=== PATIENT | female | born 1940 | race Caucasian/White ===

== ENCOUNTER 2018-07-30 13:41 | Observation (INO) ==
--- NOTE | 2018-07-30 14:16 | ED ---
HPI General Chief complaint: Dizziness Stated complaint: rt side jaw/neck/back pain x friday Time Seen by Provider: 07/30/18 14:16 History of Present Illness HPI narrative: This patient has had 2 spells of chest pain and pressure in the last 4 days. Also included her right jaw and side of neck. Currently pain- free. No injury or fever. She has elevated cholesterol but denies any prior diagnosed cardiac problems. She had a negative stress test 2 years ago per her report. Severity was moderate. No alleviating factors. No exacerbating factors. Duration was 1 hour Related Data Home Medications Medication Instructions Recorded Confirmed Cholesterol Med 07/30/18 Hormone Med 07/30/18 levothyroxine [Synthroid] 112 mcg PO DAILY 07/30/18 Previous Rx's Medication Instructions Recorded aspirin 324 mg PO DAILY tab 07/31/18 nitroglycerin [Nitrostat] 0.4 mg SUBLINGUAL Q5M PRN #30 tab 07/31/18 Allergies Allergy/AdvReac Type Severity Reaction Status Date / Time No Known Allergies Allergy Verified 07/30/18 13:54 Review of Systems ROS: all other systems reviewed are negative [facility] Family History Family History Other No pertinent family history Social History Social History Substance History: No History of Abuse Second Hand Smoke Exposure: No Smoking Status: Never smoker How Often Do You Have a Drink Containing Alcohol: Never Exam Narrative Exam Narrative: GENERAL: Well-nourished, well-developed patient in no apparent distress. SKIN: Focused skin assessment reveals no rash and nodules. Skin is Warm and dry. HEAD: Atraumatic. Normocephalic. EYES: Pupils equal and round. No scleral icterus. No injection or drainage. ENT: No nasal bleeding or discharge. Mucous membranes pink and moist. NECK: Trachea midline. No JVD. CARDIOVASCULAR: Regular rate and rhythm. No murmur appreciated. RESPIRATORY: No accessory muscle use. Clear to auscultation. Breath sounds equal bilaterally. GASTROINTESTINAL: Abdomen soft, non-tender, nondistended. Hepatic and splenic margins not palpable. MUSCULOSKELETAL: No obvious deformities. No clubbing. No cyanosis. No edema. NEUROLOGICAL: Awake and alert. No obvious cranial nerve deficits. Motor grossly within normal limits. Normal speech. PSYCHIATRIC: Appropriate mood and affect; insight and judgment normal. Course Initial Documented Vital Signs Temperature 97.7 F 07/30/18 13:50 Pulse Rate 65 07/30/18 13:50 Respiratory Rate 16 07/30/18 13:50 Blood Pressure 140/63 07/30/18 13:50 Pulse Oximetry 96 07/30/18 13:50 Last Documented Vital Signs Temperature 98.0 F 07/31/18 12:00 Pulse Rate 61 07/31/18 12:00 Respiratory Rate 14 07/31/18 12:00 Blood Pressure 130/65 07/31/18 12:00 Pulse Oximetry 96 07/31/18 12:00 Sign Out Sign Out Data: Patient Sign Out occurred on 07/30/18 at 15:06. Patient's care was discussed, and care was transferred from Deandre Taylor MD to Nakul Millan MD. Sign Out Comment: Workup initiated and checked out to the evening physician. Tentatively planning for chest pain center observation if workup is negative. Last updated by Deandre Taylor MD at 07/30/18 14:55 Post-Handoff Eval: Patient will be admitted for chest pain rule out CA. First troponin is negative. Patient is currently pain-free. Medical Decision Making MDM Narrative Medical decision making narrative: IV placed and labs sent. I gave her an aspirin. Her EKG is normal Medical Screen Exam Complete: Yes Emergency Medical Condition: Yes Differential Diagnosis Differential Diagnosis: Differential diagnosis includes CA, angina, pericarditis , pleurisy, GERD, anxiety. Medical Records Medical records reviewed: Yes I reviewed the patient's medical records. Lab Data Result diagrams: 07/30/18 14:29 07/31/18 05:45 Lab Results 07/30/18 07/30/18 07/30/18 Range/Units 14:29 14:29 18:05 CBC w Diff Auto diff final WBC 7.1 (4.0-11.0) th/mm3 RBC 4.35 (4.00-5.30) mil/mm3 Hgb 12.8 (11.6-15.3) gm/dL Hct 38.2 (35.0-46.0) % MCV 87.7 (80.0-100.0) fL MCH 29.3 (27.0-34.0) pg MCHC 33.4 (32.0-36.0) % RDW 12.7 (11.6-17.2) % Plt Count 234 (150-450) th/mm3 MPV 8.4 (7.0-11.0) fL Neut % (Auto) 52.7 (16.0-70.0) % Lymph % (Auto) 36.0 (9.0-44.0) % [place] % (Auto) 7.3 (0.0-8.0) % Eos % (Auto) 3.3 (0.0-4.0) % Baso % (Auto) 0.7 (0.0-2.0) % Neut # (Auto) 3.8 (1.8-7.7) th/mm3 Lymph # (Auto) 2.6 (1.0-4.8) th/mm3 [place] # (Auto) 0.5 (0.0-0.9) th/mm3 Eos # (Auto) 0.2 (0.0-0.4) th/mm3 Baso # (Auto) 0.0 (0.0-0.2) th/mm3 WBC Differential . Differential Comment . Sodium 140 (136-145) meq/L Potassium 3.8 (3.5-5.1) meq/L Chloride 107 (98-107) meq/L Carbon Dioxide 24.0 (21.0-32.0) meq/L Anion Gap 9 (5-15) meq/L BUN 16 (7-18) mg/dL Creatinine 1.10 H (0.50-1.00) mg/dL Estimated GFR 48 L (>89) mL/min Random Glucose 107 H (74-106) mg/dL Calcium 8.5 (8.5-10.1) mg/dL Magnesium (1.5-2.5) mg/dL Total Creatine Kinase 189 159 (26-192) U/L CK-MB (CK-2) 7.9 H (0.5-3.6) ng/mL Troponin I Less than 0.02 L Less than 0.02 L (0.02-0.05) ng/mL 07/30/18 07/31/18 Range/Units 21:08 05:45 CBC w Diff WBC (4.0-11.0) th/mm3 RBC (4.00-5.30) mil/mm3 Hgb (11.6-15.3) gm/dL Hct (35.0-46.0) % MCV (80.0-100.0) fL MCH (27.0-34.0) pg MCHC (32.0-36.0) % RDW (11.6-17.2) % Plt Count (150-450) th/mm3 MPV (7.0-11.0) fL Neut % (Auto) (16.0-70.0) % Lymph % (Auto) (9.0-44.0) % [place] % (Auto) (0.0-8.0) % Eos % (Auto) (0.0-4.0) % Baso % (Auto) (0.0-2.0) % Neut # (Auto) (1.8-7.7) th/mm3 Lymph # (Auto) (1.0-4.8) th/mm3 [place] # (Auto) (0.0-0.9) th/mm3 Eos # (Auto) (0.0-0.4) th/mm3 Baso # (Auto) (0.0-0.2) th/mm3 WBC Differential Differential Comment Sodium 142 (136-145) meq/L Potassium 4.0 (3.5-5.1) meq/L Chloride 108 H (98-107) meq/L Carbon Dioxide 27.1 (21.0-32.0) meq/L Anion Gap 7 (5-15) meq/L BUN 20 H (7-18) mg/dL Creatinine 0.87 (0.50-1.00) mg/dL Estimated GFR 63 L (>89) mL/min Random Glucose 80 (74-106) mg/dL Calcium 8.3 L (8.5-10.1) mg/dL Magnesium 2.1 (1.5-2.5) mg/dL Total Creatine Kinase 146 (26-192) U/L CK-MB (CK-2) (0.5-3.6) ng/mL Troponin I Less than 0.02 L (0.02-0.05) ng/mL Imaging Data Radiologist's impression: Cervical Spine X-Ray 07/30/18 00:00 CONCLUSION: Intact cervical spine. Degenerative changes as above. Chest X-Ray 07/30/18 14:13 CONCLUSION: 1. Minimal bibasilar patchiness consistent with atelectasis and/or mild infiltrates. Clinical correlation is recommended. 2. Mild cardiomegaly. Myocardial Perfusion Scan Nuc Med 07/31/18 00:00 CONCLUSION: 1. Minimal redistribution borderline significance as above. ECG Data EKG Prior to Arrival: No Attestation: I personally reviewed and interpreted this ECG as follows: Prior ECG tracings: not available for review Interpretation: She has a sinus rhythm with no ST elevation. Normal [place] interval and axis. Normal rate Discharge Plan Discharge Disposition Patient Disposition: 01 Discharge Home Discharge Condition Condition: Stable Discharge Order Discharge Orders: Discharge Order (Routine); Ordered 07/31/18 Ordered By: Richard Kimball Physicians Team ED Provider: Nakul Millan Attending Provider: Richard Kimball Status ED Status: Left Department Discharge Information Discharge Date/Time: 07/30/18 16:20
[2018-07-30 14:49] LABS: Baso % (Auto) 0.7 % (0.0-2.0); Eos # (Auto) 0.2 th/mm3 (0.0-0.4); Eos % (Auto) 3.3 % (0.0-4.0); Hematocrit 38.2 % (35.0-46.0); Hemoglobin 12.8 gm/dL (11.6-15.3); Lymph # (Auto) 2.6 th/mm3 (1.0-4.8); Mean Corpuscular HGB Conc 33.4 % (32.0-36.0); Mean Corpuscular Hemoglobin 29.3 pg (27.0-34.0); Mean Corpuscular Volume 87.7 fL (80.0-100.0); Mean Platelet Volume 8.4 fL (7.0-11.0); Mono # (Auto) 0.5 th/mm3 (0.0-0.9); Mono % (Auto) 7.3 % (0.0-8.0); Neut # (Auto) 3.8 th/mm3 (1.8-7.7); Neut % (Auto) 52.7 % (16.0-70.0); Platelet Count 234 th/mm3 (150-450); Red Blood Count 4.35 mil/mm3 (4.00-5.30); Red Cell Distribution Width 12.7 % (11.6-17.2); White Blood Count 7.1 th/mm3 (4.0-11.0)
[2018-07-30 15:03] LABS: Chloride 107 meq/L (98-107); Potassium 3.8 meq/L (3.5-5.1); Sodium 140 meq/L (136-145)
[2018-07-30 15:06] LABS: Calcium 8.5 mg/dL (8.5-10.1)
[2018-07-30 15:07] LABS: Anion Gap 9 meq/L (5-15); Blood Urea Nitrogen 16 mg/dL (7-18); Glucose,Random 107 mg/dL (74-106)
[2018-07-30 15:10] LABS: Glomerular Filtration Rate 48 mL/min (>89)
[2018-07-30 15:13] LABS: Creatine Kinase 189 U/L (26-192)
--- NOTE | 2018-07-30 15:15 | XR ---
EXAM DATE: 07/30/2018 3:06 PM EDT AGE/SEX: 77 years / Female INDICATIONS: Chest pain. CLINICAL DATA: This is the patient's initial encounter. Patient reports that signs and symptoms have been present for 1 day and indicates a pain score of 7/10. MEDICAL/SURGICAL HISTORY: None. None. COMPARISON: No prior exams available for comparison. FINDINGS: Minimal bibasilar patchiness is noted consistent with atelectasis and/or mild infiltrates. Clinical c orrelation is recommended. The heart is mildly enlarged. The pulmonary vascular pattern is normal. CONCLUSION: 1. Minimal bibasilar patchiness consistent with atelectasis and/or mild infiltrates. Clinical correl ation is recommended. 2. Mild cardiomegaly. Electronically signed by: Hector Cruz MD 07/30/2018 3:14 PM EDT
[2018-07-30 15:25] LABS: Creatine Kinase MB 7.9 ng/mL (0.5-3.6)
[2018-07-30] MEDS ORDERED: Acetaminophen 500 MG Tablet PO PRN (15:35)
[2018-07-30] MEDS ORDERED: Regadenoson Inj 0.4 MG/5 ML Syringe IV.PUSH ONE (15:38)
[2018-07-30] MEDS ORDERED: Morphine Sulfate Inj 2 MG/ML Vial IV.PUSH PRN (16:15)
[2018-07-30] MEDS: Heparin - SQ 10,000 UNITS/ML Vial SQ SCH (17:42)
--- NOTE | 2018-07-30 18:00 | P.HP ---
History of Present Illness Primary Care Physician: Aubrie Hood Chief Complaint: Jaw pain History of Present Illness: This is a 77-year-old female with a history of hyperlipidemia and hypothyroidism. She presents to the emergency room complaining of jaw pain. It first happened 5 days ago when she developed right jaw pain radiating to her neck and upper back pain. It lasted for about 10 minutes without medications. She massaged her right jaw which alleviated her discomfort. She denies dental pain, chest pain, shortness of breath, palpitations, dizziness and diaphoresis. Today while at work her symptoms recurred and was concerned for possible heart involvement and presented to the hospital. At this time she is pain- free. She had negative stress test 2 years ago. ER physician wants patient to be in chest pain center to be ruled out. Also denies fever, chills and cough Review of Systems All other systems reviewed negative except as stated in HPI [facility] - History History Provided By: Patient - Medical History Medical History: Medical History (Last Reviewed 07/30/18 @ 17:54 by Richard Kimball MD) High cholesterol History of hysterectomy Hypothyroid - Surgical History Surgical History: Surgical History (Last Reviewed 07/30/18 @ 17:54 by Richard Kimball MD) History of appendectomy - Family History Family History: Family History (Last Updated 07/30/18 @ 17:54 by Richard Kimball MD) Other No pertinent family history - Tobacco History Second Hand Smoke Exposure: No Smoking Status: Never smoker - Alcohol History How Often Do You Have a Drink Containing Alcohol: Never - Substance Use History Substance History: No History of Abuse - Immunization History Tetanus Immunization: Unsure Hx Influenza Vaccine This Season: Yes Medications and Allergies Active Medications: Active Medications Acetaminophen (Tylenol) 500 mg PO Q4H PRN PRN Reason: HEADACHE Hydrocodone Bitart/Acetaminophen ([place] 7.5/325) 1 tab PO Q4H PRN PRN Reason: PAIN SCALE 1 TO 7 Heparin Sodium (Porcine) (Heparin Inj) 5,000 units SQ Q12H [facility] Last Admin: 07/30/18 17:42 Dose: 5,000 units Morphine Sulfate (Morphine Inj) 2 mg IV.PUSH Q4H PRN PRN Reason: PAIN 8-10 Nitroglycerin (Nitrostat Sl) 0.4 mg SL Q5M PRN PRN Reason: CHEST PAIN Ondansetron HCl (Zofran Inj) 4 mg IV.PUSH Q6H PRN PRN Reason: NAUSEA Sodium Chloride (Ns Flush) 2 ml IV.FLUSH BID MYRTLE Sodium Chloride (Ns Flush) 2 ml IV.FLUSH PRN PRN PRN Reason: FLUSH AFTER USING IV ACCESS Allergies Allergy/AdvReac Type Severity Reaction Status Date / Time No Known Allergies Allergy Verified 07/30/18 13:54 Home Medications Medication Instructions Recorded Confirmed Type Cholesterol Med 07/30/18 History Hormone Med 07/30/18 History levothyroxine [Synthroid] 112 mcg PO DAILY 07/30/18 History Exam Vital signs: Vital Signs 07/30/18 13:50 07/30/18 14:13 07/30/18 16:34 Temperature 97.7 F Pulse Rate 65 60 54 L Respiratory Rate 16 16 Blood Pressure 140/63 140/62 Pulse Oximetry 96 96 07/30/18 17:03 07/30/18 17:07 Temperature 97.5 F L Pulse Rate 51 L Respiratory Rate 51 H Blood Pressure 129/61 Pulse Oximetry 98 95 Intake & Output 07/29/18 07/30/18 07/30/18 18:59 06:59 18:59 Weight 65 kg Other: Weight On Admission 65 kg Narrative: GENERAL: Well-developed, well-nourished in no distress SKIN: Warm and dry. HEAD: Atraumatic. Normocephalic. EYES: Pupils equal and round. No scleral icterus. No injection or drainage. ENT: No nasal bleeding or discharge. Mucous membranes pink and moist. No dental tenderness NECK: Trachea midline. No JVD. CARDIOVASCULAR: Regular rate and rhythm. RESPIRATORY: No accessory muscle use. Clear to auscultation. Breath sounds equal bilaterally. GASTROINTESTINAL: Abdomen soft, non-tender, nondistended. MUSCULOSKELETAL: Extremities without clubbing, cyanosis, or edema. No obvious deformities. No back tenderness NEUROLOGICAL: Awake and alert. No obvious cranial nerve deficits. Motor grossly within normal limits. Five out of 5 muscle strength in the arms and legs. Normal speech. PSYCHIATRIC: Appropriate mood and affect; insight and judgment normal. Results - Labs CBC & Chem 7: 07/30/18 14:29 07/30/18 14:29 Labs: Laboratory Results - last 24 hr 07/30/18 07/30/18 14:29 14:29 CBC w Diff Auto diff final WBC 7.1 RBC 4.35 Hgb 12.8 Hct 38.2 MCV 87.7 MCH 29.3 MCHC 33.4 RDW 12.7 Plt Count 234 MPV 8.4 Neut % (Auto) 52.7 Lymph % (Auto) 36.0 [place] % (Auto) 7.3 Eos % (Auto) 3.3 Baso % (Auto) 0.7 Neut # (Auto) 3.8 Lymph # (Auto) 2.6 [place] # (Auto) 0.5 Eos # (Auto) 0.2 Baso # (Auto) 0.0 WBC Differential . Differential Comment . Sodium 140 Potassium 3.8 Chloride 107 Carbon Dioxide 24.0 Anion Gap 9 BUN 16 Creatinine 1.10 H Estimated GFR 48 L Random Glucose 107 H Calcium 8.5 Total Creatine Kinase 189 CK-MB (CK-2) 7.9 H Troponin I Less than 0.02 L - Imaging Impressions Chest X-Ray 07/30/18 14:13 CONCLUSION: 1. Minimal bibasilar patchiness consistent with atelectasis and/or mild infiltrates. Clinical correlation is recommended. 2. Mild cardiomegaly. Caprini VTE Risk Assessment Caprini VTE Risk Assessment: Moderate/High Risk (score >= 2) Caprini Risk Assessment Model: Point Value = 1 Point Value = 2 Point Value = 3 Point Value = 5 Age 41-60 Minor surgery BMI > 25 kg/m2 Swollen legs Varicose veins or History of unexplained or recurrent spontaneous Oral contraceptives or hormone replacement Sepsis (< 1 month) Serious lung disease, including pneumonia (< 1 month) Abnormal pulmonary function Acute myocardial infarction Congestive heart failure (< 1 month) History of inflammatory bowel disease Medical patient at bed rest Age 61-74 Arthroscopic surgery Major open surgery (> 45 min) Laparoscopic surgery (> 45 min) Malignancy Confined to bed (> 72 hours) Immobilizing plaster cast Central venous access Age >= 75 History of VTE Family history of VTE Factor V Leiden Prothrombin [id number] Lupus anticoagulant Anticardiolipin antibodies Elevated serum homocysteine Heparin-induced thrombocytopenia Other congenital or acquired thrombophilia Stroke (< 1 month) Elective arthroplasty Hip, pelvis, or leg fracture Acute spinal cord injury (< 1 month) Prophylaxis Regimen: Total Risk Factor Score Risk Level Prophylaxis Regimen 0-1 Low Early ambulation 2 Moderate Order ONE of the following: *Sequential Compression Device (SCD) *Heparin 5000 units SQ BID 3-4 Higher Order ONE of the following medications: *Heparin 5000 units SQ TID *Enoxaparin/Lovenox 40 mg SQ daily (WT < 150 kg, CrCl > 30 mL/min) *Enoxaparin/Lovenox 30 mg SQ daily (WT < 150 kg, CrCl > 10-29 mL/min) *Enoxaparin/Lovenox 30 mg SQ BID (WT < 150 kg, CrCl > 30 mL/min) AND/OR *Sequential Compression Device (SCD) 5 or more Highest Order ONE of the following medications: *Heparin 5000 units SQ TID (Preferred with Epidurals) *Enoxaparin/Lovenox 40 mg SQ daily (WT < 150 kg, CrCl > 30 mL/min) *Enoxaparin/Lovenox 30 mg SQ daily (WT < 150 kg, CrCl > 10-29 mL/min) *Enoxaparin/Lovenox 30 mg SQ BID (WT < 150 kg, CrCl > 30 mL/min) AND *Sequential Compression Device (SCD) Assessment and Plan - Plan This is a 77-year-old female with a history of hyperlipidemia and hypothyroidism. She presents to the emergency room complaining of jaw pain radiating to her neck. She also complained of upper back pain. Symptoms worrisome for anginal equivalent. She does have risk factors for CAD. EKG reviewed by me with sinus rhythm with no acute ST-T changes. Chest x-ray image interpreted by me with no acute cardiopulmonary disease. Trend cardiac enzymes. Monitor patient on telemetry. Patient received aspirin. Sublingual nitroglycerin. Will obtain Lexiscan tomorrow if she rules out for OR. We will consult her regulatory technician if abnormal. DVT prophylaxis with SCD and subcu heparin Discharge Planning: pt
[2018-07-30 19:14] LABS: Creatine Kinase 159 U/L (26-192)
[2018-07-30 22:01] LABS: Creatine Kinase 146 U/L (26-192)
--- NOTE | 2018-07-30 23:08 | XR ---
EXAM DATE: 07/30/2018 10:58 PM EDT AGE/SEX: 77 years / Female INDICATIONS: Right side jaw and neck pain. No known injury. Best images possible due to patient cond ition and inability to move jaw. CLINICAL DATA: This is the patient's initial encounter. Patient reports that signs and symptoms have been present for 1 day and indicates a pain score of 7/10. MEDICAL/SURGICAL HISTORY: None. None. COMPARISON: No prior exams available for comparison. FINDINGS: Cervical spine alignment is normal. Vertebral bodies have normal height. No cortical break or trabecu lar disruption demonstrated. 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 Similar but milder findings are seen at C3/C4. There is mild bilateral foraminal stenosis at th nader levels, mostly C5/C6. Prevertebral soft tissues are within normal limits. CONCLUSION: Intact cervical spine. Degenerative changes as above. Electronically signed by: Juan Cerda MD 07/30/2018 11:06 PM EDT
[2018-07-31] MEDS: Heparin - SQ 10,000 UNITS/ML Vial SQ SCH (05:41)
[2018-07-31 06:22] LABS: Calcium 8.3 mg/dL (8.5-10.1)
[2018-07-31 06:23] LABS: Carbon Dioxide 27.1 meq/L (21.0-32.0); Magnesium 2.1 mg/dL (1.5-2.5)
[2018-07-31] MEDS ORDERED: Regadenoson Inj 0.4 MG/5 ML Syringe IV.PUSH ONE (09:55)
--- NOTE | 2018-07-31 11:16 | NM ---
EXAM DATE: 07/31/2018 11:09 AM EDT AGE/SEX: 77 years / Female INDICATIONS:Angina. . Jaw tightness. CLINICAL DATA: This is the patient's initial encounter. Patient reports that signs and symptoms have been present for 2 days and indicates a pain score of 3/10. MEDICAL/SURGICAL HISTORY: Hypercholesterolemia. Hypertension. Hysterectomy. COMPARISON: . DOSE: 8.7 mCi Tc 99m Myoview at rest 27.2 mCi [id number] at stress 0.4 mg Lexiscan STRESS SYMPTOMS: Chest tightness, nausea, dizziness, and heart palpitations. EJECTION FRACTION: 64 % TECHNIQUE: The patient underwent pharmacologic stress with infusion of prescribed dose. Continuous ECG tracing was monitored during stress. Gated SPECT imaging was performed after stress and conventi onal SPECT imaging was performed at rest. The examination was performed on a SPECT/CT scanner, both attenuation and non-corrected datasets were reviewed. FINDINGS: Minimal redistribution inferior septal region on the small segment towards the base. Remainder of the myocardium is well preserved Normal wall motion. RISK CATEGORY: Low (<1% Annual Motality Rate) CONCLUSION: 1. Minimal redistribution borderline significance as above. Electronically signed by: Cornelio Cruz MD 07/31/2018 11:14 AM EDT
--- NOTE | 2018-07-31 11:59 | P.PN ---
Subjective Interval history: Follow-up jaw pain. Patient complaining of fleeting right jaw pain yesterday afternoon since then she has been asymptomatic Physical Exam Vital signs: Vital Signs 07/30/18 13:50 07/30/18 14:13 07/30/18 16:34 Temperature 97.7 F Pulse Rate 65 60 54 L Respiratory Rate 16 16 Blood Pressure 140/63 140/62 Pulse Oximetry 96 96 07/30/18 17:03 07/30/18 17:07 07/30/18 20:00 Temperature 97.5 F L 96.4 F L Pulse Rate 51 L 58 L Respiratory Rate 51 H 18 Blood Pressure 129/61 120/60 Pulse Oximetry 98 95 93 L 07/31/18 00:00 07/31/18 04:00 07/31/18 08:00 Temperature 97.1 F L 97.0 F L 98.2 F Pulse Rate 64 60 54 L Respiratory Rate 18 18 12 Blood Pressure 120/70 118/67 148/66 H Pulse Oximetry 93 L 93 L 97 Intake & Output 07/30/18 07/31/18 07/31/18 18:59 06:59 18:59 Weight 65 kg 65.3 kg Other: # Voids 2 Weight On Admission 65 kg Narrative: GENERAL: Well-developed, well-nourished in no distress SKIN: Warm and dry. HEAD: Atraumatic. Normocephalic. EYES: Pupils equal and round. No scleral icterus. No injection or drainage. ENT: No nasal bleeding or discharge. Mucous membranes pink and moist. NECK: Trachea midline. No JVD. CARDIOVASCULAR: Regular rate and rhythm. RESPIRATORY: No accessory muscle use. Clear to auscultation. Breath sounds equal bilaterally. GASTROINTESTINAL: Abdomen soft, non-tender, nondistended. MUSCULOSKELETAL: Extremities without clubbing, cyanosis, or edema. No obvious deformities. NEUROLOGICAL: Awake and alert. No obvious cranial nerve deficits. Motor grossly within normal limits. Five out of 5 muscle strength in the arms and legs. Normal speech. PSYCHIATRIC: Appropriate mood and affect; insight and judgment normal. Results - Labs CBC & Chem 7: 07/30/18 14:29 07/31/18 05:45 Laboratory Results - last 24 hr 07/30/18 07/30/18 07/30/18 14:29 14:29 18:05 CBC w Diff Auto diff final WBC 7.1 RBC 4.35 Hgb 12.8 Hct 38.2 MCV 87.7 MCH 29.3 MCHC 33.4 RDW 12.7 Plt Count 234 MPV 8.4 Neut % (Auto) 52.7 Lymph % (Auto) 36.0 [place] % (Auto) 7.3 Eos % (Auto) 3.3 Baso % (Auto) 0.7 Neut # (Auto) 3.8 Lymph # (Auto) 2.6 [place] # (Auto) 0.5 Eos # (Auto) 0.2 Baso # (Auto) 0.0 WBC Differential . Differential Comment . Sodium 140 Potassium 3.8 Chloride 107 Carbon Dioxide 24.0 Anion Gap 9 BUN 16 Creatinine 1.10 H Estimated GFR 48 L Random Glucose 107 H Calcium 8.5 Magnesium Total Creatine Kinase 189 159 CK-MB (CK-2) 7.9 H Troponin I Less than 0.02 L Less than 0.02 L 07/30/18 07/31/18 21:08 05:45 CBC w Diff WBC RBC Hgb Hct MCV MCH MCHC RDW Plt Count MPV Neut % (Auto) Lymph % (Auto) [place] % (Auto) Eos % (Auto) Baso % (Auto) Neut # (Auto) Lymph # (Auto) [place] # (Auto) Eos # (Auto) Baso # (Auto) WBC Differential Differential Comment Sodium 142 Potassium 4.0 Chloride 108 H Carbon Dioxide 27.1 Anion Gap 7 BUN 20 H Creatinine 0.87 Estimated GFR 63 L Random Glucose 80 Calcium 8.3 L Magnesium 2.1 Total Creatine Kinase 146 CK-MB (CK-2) Troponin I Less than 0.02 L - Imaging Impressions Cervical Spine X-Ray 07/30/18 00:00 CONCLUSION: Intact cervical spine. Degenerative changes as above. Chest X-Ray 07/30/18 14:13 CONCLUSION: 1. Minimal bibasilar patchiness consistent with atelectasis and/or mild infiltrates. Clinical correlation is recommended. 2. Mild cardiomegaly. Myocardial Perfusion Scan Nuc Med 07/31/18 00:00 CONCLUSION: 1. Minimal redistribution borderline significance as above. - Procedures none Assessment and Plan - Plan This is a 77-year-old female with a history of hyperlipidemia and hypothyroidism. She presents to the emergency room with symptoms worrisome for anginal equivalent. She does have risk factors for CAD. Jaw pain. Patient ruled out for [place]. Lexiscan showed minimal redistribution of borderline significance. Patient is currently asymptomatic. 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 Unable to start beta-britney secondary to baseline bradycardia. Nursing again requested to update medication list DVT prophylaxis with SCD and subcu heparin Discharge Planning: Per cardiology
[2018-07-31 14:04] VITALS: BP 130/65; PULSE 61; RESP 14; TEMP 98; O2SAT 96
--- NOTE | 2018-08-01 13:08 | ECG ---
Date Performed: 07/30/2018 Time Performed: 21:03:28 PTAGE: 77 years EKG: SINUS BRADYCARDIA BORDERLINE ECG PREVIOUS TRACING : 07/30/2018 18.01 Since the previous tracing, no significant change noted DOCTOR: Houston Farrar Interpretating Date/Time 08/01/2018 13:06:10
--- NOTE | 2018-08-01 13:20 | ECG ---
Date Performed: 07/30/2018 Time Performed: 18:01:01 PTAGE: 77 years EKG: SINUS BRADYCARDIA MARKED LEFT AXIS DEVIATION ABNORMAL ECG PREVIOUS TRACING : 07/30/2018 14.05 Since the previous tracing, no significant change noted DOCTOR: Houston Farrar Interpretating Date/Time 08/01/2018 13:18:55
--- NOTE | 2018-08-01 13:33 | ECG ---
Date Performed: 07/30/2018 Time Performed: 14:05:08 PTAGE: 77 years EKG: Sinus rhythm MARKED LEFT AXIS DEVIATION ABNORMAL ECG INTERPRETATION BASED ON A DEFAULT AGE OF 40 YEARS PREVIOUS TRACING : 03/15/2013 10.17 Since the previous tracing, no significant change not ed DOCTOR: Houston Farrar Interpretating Date/Time 08/01/2018 13:32:20
== END 2018-07-31 15:08 | disposition home or self-care (01) ==
LOC: PHED 13:41 → PHEDA 13:41 → PH3 16:20
PROVIDERS: ADMIT Internal Medicine; ATTEND Internal Medicine
DX: R94.31 Abnormal electrocardiogram [ECG] [EKG]; Z90.49 Acquired absence of other specified parts of digestive tract; R07.9 Chest pain, unspecified; Z90.710 Acquired absence of both cervix and uterus; E78.00 Pure hypercholesterolemia, unspecified; E78.5 Hyperlipidemia, unspecified; E03.9 Hypothyroidism, unspecified; Z79.82 Long term (current) use of aspirin; R42 Dizziness and giddiness; R68.84 Jaw pain; I51.7 Cardiomegaly